=== PATIENT | female | born 1950 | race Caucasian/White ===

== ENCOUNTER → 2020-08-28 | Outpatient (CLI) | payer OTHER ==
[~2020-08-28] MED LIST: ADVAIR HFA 1112 UNIT INH; ALLEGRA ALLERGY60 MG PO; ANTIVERT25 MG PO; B COMPLEX1 EAC1 PO; BIOTIN5 MG PO; CALCIUM500 MG PO; COZAAR 25 MG TA25 M2 PO; DIPHENHIST50 MG PO; DOXYCYCLINE 10100 MG PO; ESTRACE1 MG PO; FAMOTIDINE 20 M20 MG PO; FISH OIL 1,2001 EAC3 PO; HYDROCHLOROTHIA25 M2 PO; KRILL OIL500 MG PO; LORTAB 10 MG-3473 ML PO; LOSARTAN-HCTZ1 EAC1 PO; OMEPRAZOLE 20 M20 M1 PO; OMEPRAZOLE40 MG PO; PREDNISONE 20 M20 MG PO; PROGESTERO50 MG/1 M3 PO; SUPER THERAVIT1 EACH PO; SYMBICORT INH; VENTOLIN HFA 1818 GM INH; VITAMIN B-125000 MC2 PO; VITAMIN D2000 UNIT PO; VITAMIN D34000 UNIT PO; [UNRECOGNIZED DRUG - OTHER] PO
--- NOTE | 2020-08-28 17:06 | CARDNUC ---
[place] [address] CARDIAC NUCLEAR IMAGING REPORT Name: PIPPA LOMBARDO Room: [facility]#: [id number] Admission: 08/28/20 Attend Phys: Adonis Horowitz, Discharge: Date of : 54 Date of Service: 08/28/20 1706 Report #: [id number] THIS REPORT FOR: cc: Lilia Fisher MD,Lilia Horowitz,Adonis Cavazos MD [facility] ~ APPROVED REPORT Imaging Protocol: Stress Tc-99m/Rest Tc-99m 1 day Study performed: 08/28/2020 12:30:00 Indication: follow up Patient Location: Out-Patient Stress Tech: Eva Nathan Stress Nurse: Abbey Fabian RN Ht: 5 ft 4 in Wt: 161 lbs BSA: 1.78 m2 BMI: 27.63 Medical History Medical History: CAD non obstructive, Diabetes, HTN Medications: hctz, losartan Allergies: multiple Cardiac Risk Factors: Age, Diabetes (non-insulin), HTN Exercise History: Indeterminate Resting Data Rest SPECT myocardial perfusion imaging was performed in supine position 30 minutes following the intravenous injection of 10.8 mCi of Tc-99m Sestamibi. Time of rest injection: 12:45 The images were gated to evaluate regional wall motion and calculate left ventricular ejection fraction. Administration Route: IV Administration Site: Right AC Pharmacologic Stress Pharmacologic stress test was performed by injecting Regadenoson 0.4 mg IV push over 10-15 seconds immediately followed by the intravenous injection of 31.6 mCi of Tc-99m Sestamibi. Time of stress injection: 14:50 Administration Route: IV Administration Site: Right AC Heart Rate at time of stress injection: [address] [place] [address] CARDIAC NUCLEAR IMAGING REPORT Name: GRUPOPIPPA L Room: [facility]#: [id number] Admission: 08/28/20 Attend Phys: Adonis Horowitz, Discharge: Date of : 54 Date of Service: 08/28/20 1706 Report #: [id number] Gated Stress SPECT was performed 40 minutes after stress injection. The images were gated to evaluate regional wall motion and calculate left ventricular ejection fraction. Prone imaging was performed. Stress Test Details Stress Test: Exercise stress converted to pharmacologic stress due to failure to obtain a diagnostic stress test. HR Max Heart Rate (APMHR): 153 bpm Resting HR: 71 bpm Target HR (85% APMHR): 130 bpm Max HR Achieved: 112 bpm % of APMHR: 73 Recovery HR: 97 bpm BP Resting BP: 158/74 mmHg Max BP: 162/69 mmHg Recovery BP: 131/68 mmHg ECG Resting ECG: Sinus Rhythm Stress ECG: Sinus Tachycardia ST Change: None Arrhythmia: None Recovery ECG: Sinus Rhythm Recovery ST Change: None Recovery Arrhythmia: None Clinical Reason for Termination: Completed protocol The patient tolerated walking Lexiscan protocol without significant cardiac symptoms. Stress ECG Conclusion The baseline twelve-lead EKG shows sinus rhythm without significant ST segment or T wave abnormality. EKGs obtained during and post walking Lexiscan stress show sinus rhythm and sinus tachycardia with no significant ST segment changes when compared to baseline. There were no stress-induced arrhythmias. Study Quality Study: Good Artifact: [place] [address] CARDIAC NUCLEAR IMAGING REPORT Name: PIPPA LOMBARDO Room: [facility]#: [id number] Admission: 08/28/20 Attend Phys: Adonis Horowitz, Discharge: Date of : 54 Date of Service: 08/28/20 1706 Report #: [id number] At rest, the left ventricular ejection fraction was 71%.. Post stress, the left ventricular ejection was 82%.. TID = 0.98. Perfusion Perfusion images obtained at rest and post stress show uniform uptake of the radioisotope throughout the myocardium. Wall Motion Normal left ventricular wall motion. Nuclear Conclusion ECG Findings: negative for ischemia Clinical Findings: negative for ischemia Nuclear Findings: negative for ischemia Exercise Capacity: not assessed Left Ventricular Function: normal Risk Study: low Myocardial perfusion images show no defect to suggest infarct or ischemia. Left ventricular systolic function appears normal on gated studies. This is a low risk study. <Conclusion> The baseline twelve-lead EKG shows sinus rhythm without significant ST segment or T wave abnormality. EKGs obtained during and post walking Lexiscan stress show sinus rhythm and sinus tachycardia with no significant ST segment changes when compared to baseline. There were no stress-induced arrhythmias. <ELECTRONICALLY SIGNED> By: Adonis Horowitz MD, FACC 08/28/20 170 05 05 Adonis Horowitz MD, FACC /INF
== END ==
LOC: M.NUC 08-18 15:53
PROVIDERS: ATTEND Internal Medicine Cardiovascular Disease
DX: R79.82 Elevated C-reactive protein (CRP) (principal)